=== PATIENT | female | born 1945 | race Caucasian/White ===

== ENCOUNTER 2019-01-10 15:58 | Inpatient (IN) | payer MEDICARE, MEDICAID ==
[~2019-01-10] VITALS: Ht 165.1 cm; Wt 102.5 kg
[~2019-01-10 15:58] MED LIST: DOCU240C26 PO; ERGO500014 PO; FURO-145 PO; LEVO50TA PO; MAGN355O3 PO; MAGN400O6 PO; POTA10CA43 PO; TYL2T PO
[2019-01-10 16:21] LABS: BASOPHILS # (AUTO) 0.1 /CMM (0.0-0.2); EOSINOPHILS % (AUTO) 2.6 % (0.0-6.0); HEMATOCRIT 37 % (33-45); HEMOGLOBIN 11.8 g/dL (11.5-14.8); LYMPHOCYTES # (AUTO) 1.4 /CMM (0.8-4.8); LYMPHOCYTES % (AUTO) 29.1 % (20.0-44.0); MEAN CORPUSCULAR HGB CONC 32 g/dl (31.0-36.0); MEAN CORPUSCULAR VOLUME 77 fL (82-100); MONOCYTES # (AUTO) 0.4 /CMM (0.1-1.30); MONOCYTES % (AUTO) 9.1 % (2.0-12.0); NEUTROPHILS # (AUTO) 2.9 /CMM (1.8-8.9); NEUTROPHILS % (AUTO) 58.2 % (43.0-81.0); PLATELET COUNT (AUTO) 133 /CMM (150-450); RED BLOOD CELL COUNT(AUTO) 4.79 MIL/uL (4.0-5.2); WHITE BLOOD COUNT (AUTO) 4.9 K/uL (4.3-11.0)
[2019-01-10 16:41] LABS: CALCIUM, SERUM 9.5 mg/dL (8.5-10.1); CARBON DIOXIDE 30 mmol/L (21-32); CHLORIDE 104 mmol/L (98-107); CREATININE 0.7 mg/dL (0.6-1.3); GLUCOSE 87 mg/dL (74-106); POTASSIUM 3.6 mmol/L (3.5-5.1); SODIUM SERUM 139 mmol/L (136-145); UREA NITROGEN, BLOOD 16 mg/dL (7-18)
[2019-01-10 16:46] LABS: ACETAMINOPHEN < 10 ug/ml (10-30); ALANINE AMINOTRANSFERASE 18 U/L (12-78); ALBUMIN 3.1 g/dL (3.4-5.0); ALCOHOL, BLOOD < 3 mg/dL (0-0); ALKALINE PHOSPHATASE 80 U/L (46-116); ASPARTATE AMINOTRANSFERASE 22 U/L (15-37); BILIRUBIN,DIRECT 0.2 mg/dL (0.0-0.2); BILIRUBIN,TOTAL 0.4 mg/dL (0.2-1.0); SALICYLATE 0.8 mg/dL (2.8-20.0); TOTAL PROTEIN, SERUM 7.8 g/dL (6.4-8.2)
--- NOTE | 2019-01-10 18:30 | NUR ---
PT PLACED ON 5150 HOLD OF 1330
--- NOTE | 2019-01-10 18:30 | NUR ---
ASSUMED CARE OF PT. PT BIB AMBULANCE FROM SNF FOR AGGRESSIVE BEHAVIOR TOWARDS STAFF. PT IS REFUSING MEDICATION.
--- NOTE | 2019-01-10 18:57 | NUR ---
PT PLACED ON A BEDPAN.
--- NOTE | 2019-01-10 19:00 | NUR ---
PT REMOVED FROM THE BEDPAN AND URINE SAMPLE SENT TO THE LAB. PT WAS CLEANED AND NEW DIAPER APPLIED.
[2019-01-10 19:27] LABS: APPEARANCE,URINE Slightly Cloudy (CLEAR); BILIRUBIN,URINE Negative (NEGATIVE); BLOOD, URINE Negative Ery/uL (NEGATIVE); COLOR,URINE Yellow (YELLOW); KETONES,URINE Negative (NEGATIVE); LEUKOCYTE ESTERASE ,URINE Small (NEGATIVE); NITRITE, URINE Positive (NEGATIVE); PROTEIN,URINE Negative (NEGATIVE); UGLUCOSE Negative (NEGATIVE)
[2019-01-10 19:31] LABS: BACTERIA,URINE 1+ /HPF (None Seen); RBC,URINE NONE SEEN /HPF (0-2); SQUAMOUS EPITHELIAL CELL,UR Few /HPF (None Seen)
--- NOTE | 2019-01-10 19:47 | NUR ---
PT APPEARS TO BE RESTING COMFORTABLY WITH NO S/S OF PAIN OR DISTRESS.
--- NOTE | 2019-01-10 19:48 | NUR ---
CALLING REPORT TO GASTON PIERSON. PT IS GOING TO ROOM 218A
[2019-01-10] MEDS: SULFAMETH/TRIMETH 800/160 MG 1 UDTAB TABLET PO ONE ×2 (20:00→21:38)
--- NOTE | 2019-01-10 20:00 | NUR ---
ADMITTED A 73 Y/O FEMALE FROM [facility] AND EVALUATED AT [facility], ON 5150 GD, BASED ON HOLD, PATIENT REFUSED MEDS, CARE, AGGRESSIVE TOWARDS STAFF, AGITATION. PATIENT ADMITTING DX. OF PSYCHOSIS, MEDICAL DX. OF UTI, HPTN. HYPOTHYROIDISM. UPON FACE TO FACE EVALUATION, PATIENT APPEARED ALERT AND ORIENTED X 2, WITH CONFUSION, UNCOOPERATIVE, HYPERVERBAL, CURSING, EASILY AGITATED, REFUSED BACTRIM, EXPLAINED THE RISK AND BENEFITS BUT PATIENT STILL REFUSED, NO SOB, NO ACUTE DISTRESS, BREATHING EVEN AND UNLABORED, DENIES PAIN AND DISCOMFORT. BELONGINGS CHECK FOR CONTRABAND, PATIENT NEEDS ATTENDED AND MET. NOTIFIED DR. SERG OCONNOR TO RECONCILE MEDICATION. NOTIFIED DR. MEJIA OF THE ADMISSION. PATIENT UNABLE TO SIGN PAPER WORKS, REFUSED PICTURE AND SKIN CHEK AT THIS TIME. ALL NEEDS ATTENDED AND MET, WILL CONTINUE TO MONITOR [id number] FOR SAFETY Addendum: 01/11/19 at 0155 by LUCERO SAWANT II, RN PER DR. PENA, SHE KNOWS THE PATIENT AND SHE WILL COME TO SEE HER TOMMOROW. ORDERS GIVEN NOTED AND CARRIED OUT.
--- NOTE | 2019-01-10 20:12 | NUR ---
ENDORSED BACTRIM PO TO AL LEE .
[2019-01-10] MEDS ORDERED: CHOL20004 PO (20:46)
[2019-01-10] MEDS ORDERED: OLAN20TA3 PO (20:46)
[2019-01-10] MEDS ORDERED: LITH150C PO (20:46)
[2019-01-10] MEDS ORDERED: LEVO25TA7 PO (20:46)
[2019-01-10] MEDS ORDERED: LORAZEPAM 0.5 MG TABLET PO PRN (21:00)
[2019-01-10] MEDS ORDERED: ACETAMINOPHEN 325 MG TABLET PO PRN (21:00)
[2019-01-10] MEDS ORDERED: MAGNESIUM HYDROXIDE 30 ML UDC PO PRN (21:00)
[2019-01-10] MEDS ORDERED: MAG HYDROX/AL HYDROX/SIMETH 30 ML UDC PO PRN (21:00)
--- NOTE | 2019-01-10 21:57 | NUR ---
GPS RN NOTE: ATTEMPTED TO GIVE THE BACTRIM DS, MULTIPLE TIMES, PATIENT REFUSED, REDIRECTED, REINFORCED AND EXPLAINED THE RISK AND BENEFITS BUT PATIENT STILL REFUSED. PATIENT GETS IRRITATED. WILL CONTINUE TO MONITOR [id number] SAFETY
[2019-01-11 00:46] VITALS: BP 142/78
[2019-01-11] MEDS: LEVOTHYROXINE SODIUM 25 MCG TABLET PO SCH (07:30)
[2019-01-11 07:35] LABS: CHOLESTEROL 84 mg/dL (<200); HDL CHOLESTEROL 37 mg/dL (40-60); LDL 40 mg/dL (0-99); TRIGLYCERIDES 72 mg/dL (30-150)
[2019-01-11 07:41] LABS: CREATININE 0.8 mg/dL (0.6-1.3)
[2019-01-11 08:00] VITALS: BP 127/76
[2019-01-11] MEDS: FUROSEMIDE 20 MG TABLET PO SCH (09:00)
[2019-01-11] MEDS: DOCUSATE SODIUM 100 MG CAPSULE PO SCH (09:00)
[2019-01-11] MEDS: POTASSIUM CHLORIDE 10 MEQ TABLET.SA PO SCH (09:00)
[2019-01-11] MEDS: CHOLECALCIFEROL 1,000 UNIT TABLET (VIT D3) PO SCH (09:00)
[2019-01-11] MEDS: Z GUARD REMEDY 4 OZ OINT TP SCH ×2 (09:00→21:06)
--- NOTE | 2019-01-11 10:19 | NUR ---
RN NOTES ATTEMPTED TO GIVE AM MEDICATIONS, MULTIPLE TIMES, PATIENT REFUSED, REDIRECTED, REINFORCED AND EXPLAINED THE RISK AND BENEFITS BUT PATIENT STILL REFUSED. PATIENT GETS IRRITATED. WILL CONTINUE TO MONITOR [id number] FOR SAFETY. MEDICATIONS OPENED AND WASTED.
[2019-01-11] MEDS ORDERED: MINERAL OIL/PETROLATUM,WHITE 120 GM JAR TP PRN (11:00)
--- NOTE | 2019-01-11 11:05 | NUR ---
WOUND CARE CONSULT: PT PRESENTS WITH RT CHEST RASH, BUTTOCK RASH, BILATERAL LOWER LEG REDNESS WITH SCALY SKIN, LONG CURLING TOENAILS, ALL PRESENT ON ADMISSION. RECOMMEND DPM CONSULT. RECOMMENDATIONS MADE FOR SKIN PROTECTION. DISCUSSED WITH NURSING STAFF. WILL SEE PRN. CURRENT WARD SCORE IS 15. MD IN AGREEMENT WITH PLAN OF CARE.
--- NOTE | 2019-01-11 11:08 | NUR ---
RN NOTES REFUSED SKIN PHOTOS
--- NOTE | 2019-01-11 13:38 | NUR ---
SW called the pt's conservator, Amairani ([phone]), and informed her that the pt is currently admitted to [facility], geriatric psych unit. SW stated that the pt came from [facility] and that the plan is that the pt will return. BALJEET asked the conservator if she could provide more information for the SW about the pt because the pt was unable to answer many questions on the assessment. She answered as many as questions as best as she could and then she directed the SW to the pt's case management specialist, Gwen Shane ([phone]).
--- NOTE | 2019-01-11 14:10 | NUR ---
SW called the pt's case loader operator, Gwen Shane ([phone]), who was able to provide the SW with more necessary information for the completion of the pt's psychosocial due to the fact that the pt was unable to ascertain many of the questions due to her confusion and psychosis.
--- NOTE | 2019-01-11 15:49 | NUR ---
RN NOTES DR TAO, SUGARCANE PLANTER, CAME TO SEE THE PATIENT TO ASSESS TOENAIL FOR POSSIBLE TRIMMING. PATIENT REFUSED, PER PATIENT "I DONT WANT ANYBODY TO LOOK AT IT".
[2019-01-11 16:00] VITALS: BP 114/72
[2019-01-11] MEDS: CLOTRIMAZOLE 1% 15 GM TUBE TP SCH (17:00)
[2019-01-11 20:28] VITALS: BP 111/53
--- NOTE | 2019-01-11 20:48 | NUR ---
GPS RN NOTES: PT. REFUSED TO SKIN ASSESSMENT AND PICTURES TAKEN , ENCOURAGED EXPLAINED RISKS AND BENEFITS ,PT. STILL REFUSED. PT. BEHAVIOR VERY UNCOOPERTIVE ,VERBALLY ABUSIVE , AGITATED.
--- NOTE | 2019-01-11 20:52 | NUR ---
GPS RN NOTES: CALLED PHARMACY REGARDING ABOUT REMEDY Z-GUARD,
[2019-01-11] MEDS: OLANZAPINE 10 MG TABLET PO SCH (22:00)
--- NOTE | 2019-01-11 22:14 | NUR ---
GPS RN NOTES: PT.REFUSED NIGHT MEDS, OLANZAPINE 20MG , ENCOURAGED EXPLAINED RISKS AND BENEFITS ,PT. STILL REFUSED. PT. BEHAVIOR VERY UNCOOPERTIVE ,VERBALLY ABUSIVE , AGITATED. PER PT. I DONT WANT TAKE ANY MEDICATION
[2019-01-12] MEDS: LEVOTHYROXINE SODIUM 25 MCG TABLET PO SCH (07:30)
[2019-01-12 08:00] VITALS: BP 141/69
[2019-01-12] MEDS: FLUPHENAZINE HCL 10 MG TABLET PO SCH ×3 (09:00→17:00)
[2019-01-12] MEDS: LITHIUM CARBONATE (300 MG CAP) 300 MG CAPSULE PO SCH (09:00)
[2019-01-12] MEDS: DOCUSATE SODIUM 100 MG CAPSULE PO SCH (09:00)
[2019-01-12] MEDS: FUROSEMIDE 20 MG TABLET PO SCH (09:00)
[2019-01-12] MEDS: CHOLECALCIFEROL 1,000 UNIT TABLET (VIT D3) PO SCH (09:00)
[2019-01-12] MEDS: Z GUARD REMEDY 4 OZ OINT TP SCH ×2 (09:29→21:00)
[2019-01-12] MEDS: CLOTRIMAZOLE 1% 15 GM TUBE TP SCH ×2 (09:29→17:36)
--- NOTE | 2019-01-12 11:08 | NUR ---
RN-CO: CALLED [facility] TO FAX THE [facility] PAPERS TO THE UNIT. STATED " I AM GOING TO FAX IT." AWAITING.
--- NOTE | 2019-01-12 12:27 | NUR ---
Initial Discharge Plan: Pt currently resides at [facility] [place] located at [address] [place] [phone]; ([phone]). Per pt, she was unable to ascertain whether or not she would like to return to the SNF due to her psychosis. SW will work with the pt and the MD regarding appropriate discharge planning. SW will form a safe and proper discharge.
[2019-01-12 16:00] VITALS: BP 138/72
--- NOTE | 2019-01-12 17:26 | NUR ---
SPOKE [facility]AS[facility] PUBLIC GUARDIAN OFFICE AND RECEIVED AN AUTHORIZATION TO DETAIN AND TREAT CONSERVATEE.
[2019-01-12] MEDS ORDERED: OLANZAPINE 10 MG VIAL IM PRN (17:30)
--- NOTE | 2019-01-12 17:40 | NUR ---
CALLED DR. PENA TO NOTIFY THAT WE DON'T HAVE PROLIXIN IM IN OUR PHARMACY AND LEFT A MESSAGE AND AWAITING FOR THE CALL BACK.
[2019-01-12 20:00] VITALS: BP 130/64
[2019-01-12] MEDS: OLANZAPINE 10 MG TABLET PO SCH (22:18)
[2019-01-13] MEDS: LEVOTHYROXINE SODIUM 25 MCG TABLET PO SCH (07:30)
[2019-01-13 08:00] VITALS: BP 140/84
[2019-01-13] MEDS: FLUPHENAZINE HCL 10 MG TABLET PO SCH ×3 (08:36→17:00)
[2019-01-13] MEDS: FUROSEMIDE 20 MG TABLET PO SCH (08:36)
[2019-01-13] MEDS: LITHIUM CARBONATE (300 MG CAP) 300 MG CAPSULE PO SCH (08:36)
[2019-01-13] MEDS: POTASSIUM CHLORIDE 10 MEQ TABLET.SA PO SCH (08:36)
[2019-01-13] MEDS: DOCUSATE SODIUM 100 MG CAPSULE PO SCH (08:36)
[2019-01-13] MEDS: CHOLECALCIFEROL 1,000 UNIT TABLET (VIT D3) PO SCH (08:36)
--- NOTE | 2019-01-13 08:37 | NUR ---
Pt's conservator, Amairani ([phone]), called the SW and asked if there were any updates regarding this pt's case. The SW stated that right now, the pt's psychiatrist, Dr. Izaguirre, is working with the pt and making medication adjustments to stabilize her. Once she states that the pt is stable enough for discharge, the SW stated that she call the conservator and inform her.
[2019-01-13] MEDS: Z GUARD REMEDY 4 OZ OINT TP SCH ×2 (09:27→21:37)
[2019-01-13] MEDS: CLOTRIMAZOLE 1% 15 GM TUBE TP SCH ×2 (09:27→17:38)
--- NOTE | 2019-01-13 12:56 | NUR ---
GPS RN NOTE: PT REFUSED AM MEDICATIONS EASILY AGITATED WHEN EXPLAIN RISK AND BENEFITSX3 ,PT CONTINUE REFUSING ,
[2019-01-13 16:00] VITALS: BP 126/69
[2019-01-13] MEDS: OLANZAPINE 5 MG TABLET PO SCH (17:37)
--- NOTE | 2019-01-13 19:55 | NUR ---
RN OPENING NOTES RECEIVED REPORT FROM DAYSHIFT RN. FOUND Pt ASLEEP, RESTING IN BED. NO S/S OF ACUTE DISTRESS OR SOB NOTED. RESPIRATIONS EVEN AND UNLABORED. SAFETY MEASURES IN PLACE. BED LOW, LOCKED, HOB ELEVATED, & SIDE RAILS UP. WILL CONTINUE TO MONITOR Pt's CONDITION AND SAFETY THROUGHOUT THE NIGHT.
[2019-01-13 20:00] VITALS: BP 117/69
[2019-01-13 21:00] VITALS: BP 117/69
[2019-01-13] MEDS: OLANZAPINE 10 MG TABLET PO SCH (21:27)
--- NOTE | 2019-01-13 22:00 | NUR ---
RN NOTES Pt TOOK ZYPREXA 20MG PO. Pt WAS AGITATED AND STARTED YELLING WELL TOLD SHE NEEDED TO TAKE HER ZYPREXA; AT FIRST Pt DID NOT WANT TO COOPERATE AND REFUSED TO TAKE THE PO MED. BUT WHEN EXPLAINED THAT IF SHE REFUSED THE PO METHOD, THEN THE ONLY ALTERNATIVE WOULD BE TO GET AN IM INJECTION SHOT WITH A NEEDLE. WHEN GIVEN HER OPTIONS, SHE AGREE TO TAKE THE PO MED INSTEAD.
[2019-01-14] MEDS: LEVOTHYROXINE SODIUM 25 MCG TABLET PO SCH ×2 (07:30→09:57)
--- NOTE | 2019-01-14 07:35 | NUR ---
RN JENNIFER NOTES NO SIGNIFICANT CHANGES IN Pt's CONDITION. Pt REMAINS STABLE PER BASELINE. NO S/S OF ACUTE DISTRESS OR SOB NOTED DURING THE NIGHT. ALL NEEDS MET AND ATTENDED. SAFETY MEASURES IN PLACE. ENDORSED TO AL FRASER FOR Pt's DINO.
[2019-01-14 08:00] VITALS: BP 100/59
[2019-01-14] MEDS: FUROSEMIDE 20 MG TABLET PO SCH ×2 (09:00→09:58)
[2019-01-14] MEDS: CHOLECALCIFEROL 1,000 UNIT TABLET (VIT D3) PO SCH ×2 (09:00→09:58)
[2019-01-14] MEDS: DOCUSATE SODIUM 100 MG CAPSULE PO SCH ×2 (09:00→09:57)
[2019-01-14] MEDS: LITHIUM CARBONATE (300 MG CAP) 300 MG CAPSULE PO SCH ×2 (09:00→09:57)
[2019-01-14] MEDS: FLUPHENAZINE HCL 10 MG TABLET PO SCH ×4 (09:00→17:00)
[2019-01-14] MEDS: OLANZAPINE 5 MG TABLET PO SCH ×2 (09:58→16:51)
[2019-01-14] MEDS: CLOTRIMAZOLE 1% 15 GM TUBE TP SCH ×2 (10:08→16:51)
[2019-01-14] MEDS: Z GUARD REMEDY 4 OZ OINT TP SCH ×2 (10:08→21:02)
[2019-01-14] MEDS: OLANZAPINE 10 MG TABLET PO SCH (10:11)
--- NOTE | 2019-01-14 10:43 | NUR ---
refused all am meds except zyprexa.
--- NOTE | 2019-01-14 15:32 | NUR ---
no change in status.
[2019-01-14 16:00] VITALS: BP 126/82
--- NOTE | 2019-01-14 19:30 | NUR ---
GPS RN NOTE, RECEIVED PATIENT AWAKE AND IN BED NO S/S OR COMPLAINTS OF PAIN AT THIS TIME. PATIENT IS DISPLAYING NO S/S OF APPARENT DISTRESS AT THIS TIME. PATIENT BREATHING IS UNLABORED WITH EQUAL RISE AND FALL OF THE CHEST. PATIENT IS ALERT AND ORIENTED X 1-2 ON ROOM AIR WITH A SPO2 0F 95%. PATIENT IS MED SELECTIVE, DISORGANIZED, DELUSIONAL, COOPERATIVE, CONFUSED AT TIME, AND NEEDS REORIENTATION. PATIENT DENIES SUICIDE AND HOMICIDAL IDEATIONS AT THIS TIME. PATIENT ASSISTED WITH TURNING AND REPOSITIONING Q2HR AND PRN FOR COMFORT AND CIRCULATION. PATIENT HAS NO NEEDS AT THIS TIME. PATIENT EDUCATED ON THE USE OF THE CALL SHAH. PATIENT BED SIDE RAILS ARE UP X 2 FOR SAFETY, BED IS LOCKED AND LOW. WILL CONTINUE TO MONITOR AND MAINTAIN SAFETY Q15 MIN WITH THE HELP OF STAFF.
[2019-01-14 20:00] VITALS: BP 110/64
[2019-01-15] MEDS: LEVOTHYROXINE SODIUM 25 MCG TABLET PO SCH (07:30)
[2019-01-15 08:00] VITALS: BP 131/67
[2019-01-15] MEDS: DOCUSATE SODIUM 100 MG CAPSULE PO SCH (09:00)
[2019-01-15] MEDS: Z GUARD REMEDY 4 OZ OINT TP SCH ×2 (09:00→21:11)
[2019-01-15] MEDS: CHOLECALCIFEROL 1,000 UNIT TABLET (VIT D3) PO SCH (09:00)
[2019-01-15] MEDS: POTASSIUM CHLORIDE 10 MEQ TABLET.SA PO SCH (09:00)
[2019-01-15] MEDS: FLUPHENAZINE HCL 10 MG TABLET PO SCH ×3 (09:00→17:00)
[2019-01-15] MEDS: OLANZAPINE 5 MG TABLET PO SCH ×2 (09:00→17:00)
[2019-01-15] MEDS: LITHIUM CARBONATE (300 MG CAP) 300 MG CAPSULE PO SCH (09:00)
[2019-01-15] MEDS: FUROSEMIDE 20 MG TABLET PO SCH (09:00)
[2019-01-15] MEDS: CLOTRIMAZOLE 1% 15 GM TUBE TP SCH ×2 (09:00→18:18)
[2019-01-15] MEDS: clonazePAM 0.5 MG TABLET PO PRN (10:48)
[2019-01-15 16:00] VITALS: BP 116/53
--- NOTE | 2019-01-15 19:30 | NUR ---
GPS RN NOTE, RECEIVED PATIENT AWAKE AND IN BED NO S/S OR COMPLAINTS OF PAIN AT THIS TIME. PATIENT IS DISPLAYING NO S/S OF APPARENT DISTRESS AT THIS TIME. PATIENT BREATHING IS UNLABORED WITH EQUAL RISE AND FALL OF THE CHEST. PATIENT IS ALERT AND ORIENTED X 1-2 ON ROOM AIR WITH A SPO2 OF 98%. PATIENT IS MED SELECTIVE, DISORGANIZED, DELUSIONAL, COOPERATIVE, CONFUSED AT TIME, AND NEEDS REORIENTATION. PATIENT DENIES SUICIDE AND HOMICIDAL IDEATIONS AT THIS TIME. PATIENT ASSISTED WITH TURNING AND REPOSITIONING Q2HR AND PRN FOR COMFORT AND CIRCULATION. PATIENT HAS NO NEEDS AT THIS TIME. PATIENT EDUCATED ON THE USE OF THE CALL SHAH. PATIENT BED SIDE RAILS ARE UP X 2 FOR SAFETY, BED IS LOCKED AND LOW. WILL CONTINUE TO MONITOR AND MAINTAIN SAFETY Q15 MIN WITH THE HELP OF STAFF.
--- NOTE | 2019-01-15 20:00 | NUR ---
GPS RN NOTE, PATIENT REFUSED TO HAVE SKIN EXAM AND PICTURES TAKEN TODAY. OFFERED TO DO SKIN EXAM AND TAKE PICTURES THREE TIMES AND STILL PATIENT REFUSED STATING, " I DON'T WANT PICTURES TAKEN OF ME ". EDUCATED THIS PATIENT ON HOSPITAL POLICY OF DOING SKIN EXAM. WILL CONTINUE TO MONITOR THIS PATIENT.
[2019-01-15 20:29] VITALS: BP 132/69
[2019-01-15] MEDS: OLANZAPINE 10 MG TABLET PO SCH (21:49)
[2019-01-16] MEDS: LEVOTHYROXINE SODIUM 25 MCG TABLET PO SCH (07:30)
[2019-01-16 08:00] VITALS: BP 101/73
[2019-01-16] MEDS ORDERED: FLUPHENAZINE DECANOATE 25 MG/ML IJ ONE (09:00)
[2019-01-16] MEDS: FLUPHENAZINE HCL 10 MG TABLET PO SCH ×3 (09:19→17:00)
[2019-01-16] MEDS: LITHIUM CARBONATE (300 MG CAP) 300 MG CAPSULE PO SCH (09:19)
[2019-01-16] MEDS: CHOLECALCIFEROL 1,000 UNIT TABLET (VIT D3) PO SCH (09:19)
[2019-01-16] MEDS: DOCUSATE SODIUM 100 MG CAPSULE PO SCH (09:19)
[2019-01-16] MEDS: OLANZAPINE 5 MG TABLET PO SCH ×2 (09:19→17:00)
[2019-01-16] MEDS: CLOTRIMAZOLE 1% 15 GM TUBE TP SCH ×2 (09:20→17:00)
[2019-01-16] MEDS: FUROSEMIDE 20 MG TABLET PO SCH (09:20)
[2019-01-16] MEDS: Z GUARD REMEDY 4 OZ OINT TP SCH ×2 (09:21→21:26)
[2019-01-16 16:00] VITALS: BP 107/68
[2019-01-16 20:13] VITALS: BP 126/53
[2019-01-16] MEDS: OLANZAPINE 10 MG TABLET PO SCH (21:25)
[2019-01-16 21:40] VITALS: BP 120/65
[2019-01-17 08:00] VITALS: BP 137/98
[2019-01-17] MEDS: POTASSIUM CHLORIDE 10 MEQ TABLET.SA PO SCH ×2 (08:50→09:00)
[2019-01-17] MEDS: LEVOTHYROXINE SODIUM 25 MCG TABLET PO SCH (08:50)
[2019-01-17] MEDS: CHOLECALCIFEROL 1,000 UNIT TABLET (VIT D3) PO SCH ×2 (08:50→09:00)
[2019-01-17] MEDS: LITHIUM CARBONATE (300 MG CAP) 300 MG CAPSULE PO SCH (08:50)
[2019-01-17] MEDS: FLUPHENAZINE HCL 10 MG TABLET PO SCH ×2 (08:50→21:59)
[2019-01-17] MEDS: DOCUSATE SODIUM 100 MG CAPSULE PO SCH ×2 (08:51→09:00)
[2019-01-17] MEDS: FUROSEMIDE 20 MG TABLET PO SCH ×2 (08:51→09:00)
[2019-01-17] MEDS: OLANZAPINE 5 MG TABLET PO SCH ×2 (08:51→17:11)
[2019-01-17] MEDS: CLOTRIMAZOLE 1% 15 GM TUBE TP SCH ×2 (09:00→17:13)
[2019-01-17] MEDS: Z GUARD REMEDY 4 OZ OINT TP SCH ×2 (09:00→21:59)
[2019-01-17 16:00] VITALS: BP 100/55
[2019-01-17 21:56] VITALS: BP 115/60
[2019-01-17] MEDS: OLANZAPINE 10 MG TABLET PO SCH (21:59)
[2019-01-18 07:05] LABS: BASOPHILS % (AUTO) 0.7 % (0.0-2.0); EOSINOPHILS % (AUTO) 5.2 % (0.0-6.0); HEMATOCRIT 38 % (33-45); HEMOGLOBIN 11.9 g/dL (11.5-14.8); LYMPHOCYTES # (AUTO) 1.9 /CMM (0.8-4.8); LYMPHOCYTES % (AUTO) 30.2 % (20.0-44.0); MEAN CORPUSCULAR HGB CONC 32 g/dl (31.0-36.0); MEAN CORPUSCULAR VOLUME 78 fL (82-100); MONOCYTES # (AUTO) 0.5 /CMM (0.1-1.30); MONOCYTES % (AUTO) 8.2 % (2.0-12.0); NEUTROPHILS # (AUTO) 3.4 /CMM (1.8-8.9); NEUTROPHILS % (AUTO) 55.7 % (43.0-81.0); PLATELET COUNT (AUTO) 113 /CMM (150-450); RED BLOOD CELL COUNT(AUTO) 4.86 MIL/uL (4.0-5.2); WHITE BLOOD COUNT (AUTO) 6.1 K/uL (4.3-11.0)
[2019-01-18] MEDS: LEVOTHYROXINE SODIUM 25 MCG TABLET PO SCH (07:30)
[2019-01-18 07:44] LABS: CALCIUM, SERUM 9.4 mg/dL (8.5-10.1); CARBON DIOXIDE 28 mmol/L (21-32); CHLORIDE 106 mmol/L (98-107); CREATININE 0.8 mg/dL (0.6-1.3); GLUCOSE 94 mg/dL (74-106); PHOSPHORUS 4.1 mg/dL (2.5-4.9); POTASSIUM 4.2 mmol/L (3.5-5.1); SODIUM SERUM 141 mmol/L (136-145); UREA NITROGEN, BLOOD 7 mg/dL (7-18)
[2019-01-18 08:00] VITALS: BP 147/76
[2019-01-18] MEDS: DOCUSATE SODIUM 100 MG CAPSULE PO SCH (08:31)
[2019-01-18] MEDS: FUROSEMIDE 20 MG TABLET PO SCH (08:31)
[2019-01-18] MEDS: OLANZAPINE 5 MG TABLET PO SCH ×2 (08:32→17:05)
[2019-01-18] MEDS: CHOLECALCIFEROL 1,000 UNIT TABLET (VIT D3) PO SCH (08:32)
[2019-01-18] MEDS: LITHIUM CARBONATE (300 MG CAP) 300 MG CAPSULE PO SCH (08:32)
[2019-01-18] MEDS: Z GUARD REMEDY 4 OZ OINT TP SCH ×2 (08:33→21:20)
[2019-01-18] MEDS: CLOTRIMAZOLE 1% 15 GM TUBE TP SCH ×2 (08:33→17:00)
[2019-01-18 16:00] VITALS: BP 122/61
--- NOTE | 2019-01-18 19:10 | NUR ---
RECIEVED PATIENT AWAKE ALERT. ACKNOWLEDGED ME WHEN I INTRODUCED MY SELF. SHE IS IN BED, STARING AT THE WALL AHEAD OF HER. SHE SMILES WHEN SPOKEN TO AND HAS [facility] CONTACT. PATIENT'S BREATHING UNLABORED.
[2019-01-18 20:24] VITALS: BP 121/78
[2019-01-18] MEDS: OLANZAPINE 10 MG TABLET PO SCH (21:20)
[2019-01-18] MEDS: FLUPHENAZINE HCL 10 MG TABLET PO SCH (21:20)
--- NOTE | 2019-01-19 05:05 | NUR ---
ENDING NOTES: AT THE BEGINNING OF THE SHIFT SHE WAS PLEASENT AND SMILING . ACKNOWLEDGED ME WHEN I INTRODUCED RHONDA. AT 22:00 I NOTICED SHE SPOKE AGGRESSIVELY...MOCKING ME I SPOKE. SHE REFUSED THE MEDICATION ZYPREXIA PO , WHEN I INSTRUCTED HER THE NEED TO TAKE I WOULD HAVE TO HER A SHOT IF NOT TAKING PO, SHE TOOK THE PILL WITH APPLEJUICE.
[2019-01-19 08:00] VITALS: BP 129/81
[2019-01-19] MEDS: LITHIUM CARBONATE (300 MG CAP) 300 MG CAPSULE PO SCH (08:31)
[2019-01-19] MEDS: LEVOTHYROXINE SODIUM 25 MCG TABLET PO SCH (08:31)
[2019-01-19] MEDS: OLANZAPINE 5 MG TABLET PO SCH ×2 (08:31→16:25)
[2019-01-19] MEDS: DOCUSATE SODIUM 100 MG CAPSULE PO SCH (08:31)
[2019-01-19] MEDS: FUROSEMIDE 20 MG TABLET PO SCH (08:32)
[2019-01-19] MEDS: CHOLECALCIFEROL 1,000 UNIT TABLET (VIT D3) PO SCH (08:32)
[2019-01-19] MEDS: POTASSIUM CHLORIDE 10 MEQ TABLET.SA PO SCH (08:34)
[2019-01-19] MEDS: Z GUARD REMEDY 4 OZ OINT TP SCH ×2 (09:01→22:19)
[2019-01-19] MEDS: CLOTRIMAZOLE 1% 15 GM TUBE TP SCH ×2 (09:01→16:25)
[2019-01-19 16:00] VITALS: BP 105/67
[2019-01-19 20:00] VITALS: BP 117/70
[2019-01-19] MEDS: FLUPHENAZINE HCL 10 MG TABLET PO SCH (22:10)
[2019-01-19] MEDS: OLANZAPINE 10 MG TABLET PO SCH (22:10)
[2019-01-20 08:00] VITALS: BP 135/64
[2019-01-20] MEDS: LITHIUM CARBONATE (300 MG CAP) 300 MG CAPSULE PO SCH (08:49)
[2019-01-20] MEDS: FUROSEMIDE 20 MG TABLET PO SCH (08:49)
[2019-01-20] MEDS: CHOLECALCIFEROL 1,000 UNIT TABLET (VIT D3) PO SCH (08:49)
[2019-01-20] MEDS: LEVOTHYROXINE SODIUM 25 MCG TABLET PO SCH (08:49)
[2019-01-20] MEDS: DOCUSATE SODIUM 100 MG CAPSULE PO SCH (08:49)
[2019-01-20] MEDS: OLANZAPINE 5 MG TABLET PO SCH ×2 (08:50→17:09)
[2019-01-20] MEDS: Z GUARD REMEDY 4 OZ OINT TP SCH ×2 (09:16→20:45)
[2019-01-20] MEDS: CLOTRIMAZOLE 1% 15 GM TUBE TP SCH ×2 (09:17→17:15)
[2019-01-20 16:00] VITALS: BP 100/59
--- NOTE | 2019-01-20 18:01 | NUR ---
DR. PENA GAVE AN ORDER FOR DENIAL RIGHTS TO GIVE SHOWER.
[2019-01-20 20:00] VITALS: BP 123/69
[2019-01-20] MEDS: FLUPHENAZINE HCL 10 MG TABLET PO SCH (21:09)
[2019-01-20] MEDS: OLANZAPINE 10 MG TABLET PO SCH (21:09)
[2019-01-21 08:00] VITALS: BP 120/68
[2019-01-21] MEDS: FUROSEMIDE 20 MG TABLET PO SCH (08:27)
[2019-01-21] MEDS: POTASSIUM CHLORIDE 10 MEQ TABLET.SA PO SCH (08:27)
[2019-01-21] MEDS: CHOLECALCIFEROL 1,000 UNIT TABLET (VIT D3) PO SCH (08:27)
[2019-01-21] MEDS: LEVOTHYROXINE SODIUM 25 MCG TABLET PO SCH (08:27)
[2019-01-21] MEDS: LITHIUM CARBONATE (300 MG CAP) 300 MG CAPSULE PO SCH (08:27)
[2019-01-21] MEDS: DOCUSATE SODIUM 100 MG CAPSULE PO SCH (08:27)
[2019-01-21] MEDS: OLANZAPINE 5 MG TABLET PO SCH ×2 (08:27→16:49)
[2019-01-21] MEDS: CLOTRIMAZOLE 1% 15 GM TUBE TP SCH ×2 (08:32→16:51)
[2019-01-21] MEDS: Z GUARD REMEDY 4 OZ OINT TP SCH ×2 (08:32→20:24)
[2019-01-21 16:00] VITALS: BP 113/72
[2019-01-21 20:00] VITALS: BP 105/64
[2019-01-21] MEDS: OLANZAPINE 10 MG TABLET PO SCH (21:55)
[2019-01-21] MEDS: FLUPHENAZINE HCL 10 MG TABLET PO SCH (21:55)
[2019-01-22] MEDS: LEVOTHYROXINE SODIUM 25 MCG TABLET PO SCH (07:30)
[2019-01-22 08:00] VITALS: BP 121/72
[2019-01-22] MEDS: OLANZAPINE 5 MG TABLET PO SCH ×2 (09:04→16:35)
[2019-01-22] MEDS: FUROSEMIDE 20 MG TABLET PO SCH (09:04)
[2019-01-22] MEDS: CHOLECALCIFEROL 1,000 UNIT TABLET (VIT D3) PO SCH (09:04)
[2019-01-22] MEDS: DOCUSATE SODIUM 100 MG CAPSULE PO SCH (09:06)
[2019-01-22] MEDS: LITHIUM CARBONATE (300 MG CAP) 300 MG CAPSULE PO SCH (09:06)
[2019-01-22] MEDS: CLOTRIMAZOLE 1% 15 GM TUBE TP SCH ×2 (09:06→16:35)
[2019-01-22] MEDS: Z GUARD REMEDY 4 OZ OINT TP SCH ×2 (09:07→21:00)
[2019-01-22 16:00] VITALS: BP 123/78
[2019-01-22 20:00] VITALS: BP 106/68
[2019-01-22] MEDS: OLANZAPINE 10 MG TABLET PO SCH (21:24)
--- NOTE | 2019-01-23 06:32 | NUR ---
PATIENT IN BED ASLEEP; EASILY AROUSABLE. RESPIRATIONS EVEN. NO SIGNS OF PAIN NOTED. PATIENT REFUSED SKIN CHECK AND PHOTOS. PATIENT REFUSED DUE MEDS. SAFETY PRECAUTIONS AND COMFORT MEASURES IN PLACE. WILL GIVE REPORT TO DAY SHIFT FOR CONTINUITY OF CARE.
[2019-01-23] MEDS: LEVOTHYROXINE SODIUM 25 MCG TABLET PO SCH (07:30)
[2019-01-23 08:00] VITALS: BP 114/52
[2019-01-23] MEDS: CLOTRIMAZOLE 1% 15 GM TUBE TP SCH ×2 (08:35→16:29)
[2019-01-23] MEDS: Z GUARD REMEDY 4 OZ OINT TP SCH ×2 (08:36→21:14)
[2019-01-23] MEDS: POTASSIUM CHLORIDE 10 MEQ TABLET.SA PO SCH (08:38)
[2019-01-23] MEDS: DOCUSATE SODIUM 100 MG CAPSULE PO SCH (08:38)
[2019-01-23] MEDS: FUROSEMIDE 20 MG TABLET PO SCH (08:38)
[2019-01-23] MEDS: LITHIUM CARBONATE (300 MG CAP) 300 MG CAPSULE PO SCH (08:39)
[2019-01-23] MEDS: CHOLECALCIFEROL 1,000 UNIT TABLET (VIT D3) PO SCH (08:39)
[2019-01-23] MEDS: OLANZAPINE 5 MG TABLET PO SCH ×2 (08:39→16:29)
--- NOTE | 2019-01-23 08:40 | NUR ---
GPS NOTES Patient refused medication. Explained risks vs benefits x3 but continues to refuse. Will continue to monitor patient
--- NOTE | 2019-01-23 15:57 | NUR ---
GPS RN NOTES MD in unit. Made aware of med refusal. Awaiting for new orders
[2019-01-23 16:00] VITALS: BP 121/51
--- NOTE | 2019-01-23 16:06 | NUR ---
SW spoke to the pt in her room regarding her upcoming discharge to [facility] [place]. SW informed her that she would be discharging by the end of this week and the pt stated that she would like to return because she misses that environment. SW discussed the medication changes that were made since she has been admitted and informed her that she appears to be much more stable now.
[2019-01-23 20:19] VITALS: BP 125/69
[2019-01-23] MEDS: OLANZAPINE 10 MG TABLET PO SCH (21:13)
[2019-01-24] MEDS ORDERED: ACETAMINOPHEN 325 MG TABLET PO PRN (00:30)
[2019-01-24] MEDS ORDERED: MAGNESIUM HYDROXIDE 30 ML UDC PO PRN (00:30)
[2019-01-24 08:00] VITALS: BP 116/77
[2019-01-24] MEDS: LITHIUM CARBONATE (300 MG CAP) 300 MG CAPSULE PO SCH (08:13)
[2019-01-24] MEDS: clonazePAM 0.5 MG TABLET PO PRN (08:13)
[2019-01-24] MEDS: OLANZAPINE 5 MG TABLET PO SCH ×2 (08:13→16:35)
[2019-01-24] MEDS: LEVOTHYROXINE SODIUM 25 MCG TABLET PO SCH (08:13)
[2019-01-24] MEDS: CHOLECALCIFEROL 1,000 UNIT TABLET (VIT D3) PO SCH (08:14)
[2019-01-24] MEDS: POTASSIUM CHLORIDE 10 MEQ TABLET.SA PO SCH (08:26)
[2019-01-24] MEDS: FUROSEMIDE 20 MG TABLET PO SCH (08:26)
--- NOTE | 2019-01-24 08:29 | NUR ---
TOOK DSS 100 MG PO FROM [facility] AND ACCIDENTALLY DROPPED THE CAPSULE ON THE FLOOR.TOOK ANOTHER 1 CAPSULE FROM [facility].
[2019-01-24] MEDS: CLOTRIMAZOLE 1% 15 GM TUBE TP SCH ×2 (08:50→16:41)
[2019-01-24] MEDS: Z GUARD REMEDY 4 OZ OINT TP SCH ×2 (08:51→21:11)
[2019-01-24] MEDS ORDERED: DOCUSATE SODIUM 100 MG CAPSULE PO SCH (09:00)
[2019-01-24] MEDS ORDERED: CHOLECALCIFEROL 1,000 UNIT TABLET (VIT D3) PO SCH (09:00)
--- NOTE | 2019-01-24 09:00 | NUR ---
GPS RN AM NOTES PATIENT IS ALERT AND ORIENTED X 2. PATIENT IS COOPERATIVE BUT HAS DISORGANIZED SPEECH. PATIENT VITALS ARE WNL. PATIENT IS WITHDRAWN AND ISOLATIVE. PATIENTS MORNING MEDICATIONS WERE GIVEN. SAFETY PRECAUTIONS AND COMFORT MEASURES ARE IN PLACE. WILL CONTINUE TO MONITOR PATIENT.
--- NOTE | 2019-01-24 09:30 | NUR ---
DURING AM CARE,PT IS NOTED TO HAVE DISTENDED SOFT ABDOMEN.PT DENIES ANY DISCOMFORT.PT PASSES GAS WHEN BEING TURNED AND VOIDED XL YELLOW URINE.GOOD PERICARE RENDERED. WILL INFORM DR KNIGHT.
--- NOTE | 2019-01-24 15:15 | NUR ---
PT HAS DISTENDED SOFT ABDOMEN EVEN IF THE PT VOIDS EXTRA LARGE AMOUNTS OF YELLOW URINE.CHECKED FOR IMPACTION-CAME OUT NEGATIVE.BLADDER SCAN DONE AND WAS RETAINING [address] KNGIHT AND AWAITING TO RETURN CALL.PT DENIES ANY DISCOMFORT OR DISTRESS.WILL CONTINUE TO [id number].
[2019-01-24 16:00] VITALS: BP 117/75
--- NOTE | 2019-01-24 16:00 | NUR ---
DR KNIGHT HASN'T RETURN CALL.PAGED SECOND TIME AND AWAITING TO RETURN CALL. PT CONTINUES TO DENY ANY DISTRESS OR DISCOMFORT.
[2019-01-24] MEDS: DOCUSATE SODIUM 100 MG CAPSULE PO SCH (16:35)
--- NOTE | 2019-01-24 16:52 | NUR ---
DR KNIGHT RETURNED CALL WITH ORDERS FOR FLOMAX 0.4 MG PO DAILY AND DO IN/OUT STRAIGHT CATHETER IF BLADDERSCAN RESULT IS >300 ML.
--- NOTE | 2019-01-24 18:00 | NUR ---
DIAPER CHECKED AND MADE XL YELLOW URINE OUTPUT.IN AND OUT STRAIGHT CATH DONE AND DRAINED 400 ML YELLOW URINE OUTPUT.GOOD PERICARE DONE.PT'S ABDOMEN IS STILL SOFT AND DISTENDED BUT DENIES ANY DISCOMFORT OR DISTRESS.ENCOURAGED TO AMBULATE OR SIT IN THE CHAIR BUT PT REFUSED. WILL CONTINUE TO MONITOR.
--- NOTE | 2019-01-24 18:28 | NUR ---
PATIENT IS ALERT AND ORIENTED X 2. PATIENT IS COOPERATIVE BUT AT THAT TIMES GETS AGITATED. PATIENT HAS DISORGANIZED SPEECH. PATIENT VITALS ARE WNL. PATIENT IS WITHDRAWN AND HAS NOT PARTICIPATED IN DAILY ACTIVITIES. PATIENTS TOOK HER MEDICATION WITH NOT PROBLEM. SAFETY PRECAUTIONS AND COMFORT MEASURES ARE IN PLACE. BED IS LOCKED AND AT LOWEST POSITION. WILL CONTINUE TO MONITOR PATIENT AND REPORT TO CABINET ASSEMBLER ABOUT CONTINUOUS OF CARE. .
[2019-01-24 20:36] VITALS: BP 122/74
[2019-01-24] MEDS: TAMSULOSIN 0.4 MG CAP.SR.24H PO SCH (21:36)
[2019-01-24] MEDS: OLANZAPINE 10 MG TABLET PO SCH (21:36)
--- NOTE | 2019-01-24 23:21 | NUR ---
GPS RN NOTES DIAPER CHECKED AND SOME FOUL SMELL URINE OUTPUT NOTED, BLADDER SCAN DONE AND WAS RETAINING 450 ML URINE , PER MD ORDERS IN AND OUT STRAIGHT CATH DONE AND DRAINED 250 ML YELLOW URINE OUTPUT. CHARGE NURSE NOTIFIED AND URINE CULTURE COLLECT AND SEND TO LAB, PERICARE DONE. PT'S ABDOMEN IS STILL SOFT AND DISTENDED BUT DENIES ANY PAIN /DISCOMFORT AT THIS TIME , WILL CONTINUE TO MONITOR.
--- NOTE | 2019-01-25 02:00 | NUR ---
GPS RN NOTES DIAPER CHECKED AND MADE LARGE AMOUNT YELLOW URINE OUTPUT NOTED, PT'S ABDOMEN IS STILL SOFT, BUT DENIES ANY PAIN /DISCOMFORT AT THIS TIME , WILL CONTINUE TO MONITOR.
--- NOTE | 2019-01-25 05:30 | NUR ---
GPS RN NOTES DIAPER CHECKED AND MADE APPROXIMATELY MEDIUM AMOUNT YELLOW URINE OUTPUT NOTED, BLADDER SCAN DONE AND 100 ML URINE NOTED , PT. DENIES ANY PAIN /DISCOMFORT AT THIS TIME , WILL CONTINUE TO MONITOR.
[2019-01-25 08:00] VITALS: BP 126/66
[2019-01-25] MEDS: LEVOTHYROXINE SODIUM 25 MCG TABLET PO SCH (08:51)
[2019-01-25] MEDS: LITHIUM CARBONATE (300 MG CAP) 300 MG CAPSULE PO SCH (08:51)
[2019-01-25] MEDS: DOCUSATE SODIUM 100 MG CAPSULE PO SCH ×2 (08:51→17:45)
[2019-01-25] MEDS: CHOLECALCIFEROL 1,000 UNIT TABLET (VIT D3) PO SCH (08:52)
[2019-01-25] MEDS: OLANZAPINE 5 MG TABLET PO SCH ×2 (08:52→17:45)
[2019-01-25] MEDS: FUROSEMIDE 20 MG TABLET PO SCH (08:52)
[2019-01-25] MEDS: POTASSIUM CHLORIDE 10 MEQ TABLET.SA PO SCH (08:55)
[2019-01-25] MEDS: CLOTRIMAZOLE 1% 15 GM TUBE TP SCH ×2 (08:57→17:49)
[2019-01-25] MEDS: Z GUARD REMEDY 4 OZ OINT TP SCH ×2 (09:44→21:34)
--- NOTE | 2019-01-25 15:00 | NUR ---
GPS/RN-NOTES PATIENT STRONGLY REFUSED BLADDER SCAN,STATED " NO THEY DID CATHETER YESTERDAY". EXPLAINED RISK AND BENEFITS BUT PATIENT SCREAM AND YELLS AT THE AUTO BODY WORKER. CHARGE NURSE AWARE.
[2019-01-25 16:00] VITALS: BP 126/74
--- NOTE | 2019-01-25 16:10 | NUR ---
BALJEET called the pt's conservator, Amairani ([phone]), and left a message on her voicemail stating that the pt will be discharged back to [facility] [place] the following day.
[2019-01-25 20:48] VITALS: BP 96/59
[2019-01-25] MEDS: TAMSULOSIN 0.4 MG CAP.SR.24H PO SCH (21:35)
[2019-01-25] MEDS: OLANZAPINE 10 MG TABLET PO SCH (21:35)
[2019-01-26 07:31] LABS: BASOPHILS % (AUTO) 0.6 % (0.0-2.0); EOSINOPHILS % (AUTO) 4.9 % (0.0-6.0); HEMATOCRIT 37 % (33-45); HEMOGLOBIN 11.8 g/dL (11.5-14.8); LYMPHOCYTES # (AUTO) 1.9 /CMM (0.8-4.8); LYMPHOCYTES % (AUTO) 27.6 % (20.0-44.0); MEAN CORPUSCULAR HGB CONC 32 g/dl (31.0-36.0); MEAN CORPUSCULAR VOLUME 77 fL (82-100); MONOCYTES # (AUTO) 0.7 /CMM (0.1-1.30); MONOCYTES % (AUTO) 10.1 % (2.0-12.0); NEUTROPHILS # (AUTO) 3.8 /CMM (1.8-8.9); NEUTROPHILS % (AUTO) 56.8 % (43.0-81.0); PLATELET COUNT (AUTO) 111 /CMM (150-450); RED BLOOD CELL COUNT(AUTO) 4.72 MIL/uL (4.0-5.2); WHITE BLOOD COUNT (AUTO) 6.7 K/uL (4.3-11.0)
[2019-01-26 07:48] LABS: ALANINE AMINOTRANSFERASE 13 U/L (12-78); ALBUMIN 2.6 g/dL (3.4-5.0); ALKALINE PHOSPHATASE 71 U/L (46-116); ASPARTATE AMINOTRANSFERASE 17 U/L (15-37); BILIRUBIN,TOTAL 0.6 mg/dL (0.2-1.0); CALCIUM, SERUM 9.3 mg/dL (8.5-10.1); CARBON DIOXIDE 27 mmol/L (21-32); CHLORIDE 104 mmol/L (98-107); CREATININE 0.8 mg/dL (0.6-1.3); GLUCOSE 99 mg/dL (74-106); MAGNESIUM 1.7 mg/dL (1.8-2.4); PHOSPHORUS 3.5 mg/dL (2.5-4.9); POTASSIUM 3.9 mmol/L (3.5-5.1); SODIUM SERUM 138 mmol/L (136-145); TOTAL PROTEIN, SERUM 6.9 g/dL (6.4-8.2); UREA NITROGEN, BLOOD 8 mg/dL (7-18)
[2019-01-26 08:00] VITALS: BP 112/63
[2019-01-26] MEDS: LEVOTHYROXINE SODIUM 25 MCG TABLET PO SCH (08:41)
[2019-01-26] MEDS: DOCUSATE SODIUM 100 MG CAPSULE PO SCH (08:41)
[2019-01-26] MEDS: OLANZAPINE 5 MG TABLET PO SCH (08:41)
[2019-01-26] MEDS: FUROSEMIDE 20 MG TABLET PO SCH (08:42)
[2019-01-26] MEDS: CHOLECALCIFEROL 1,000 UNIT TABLET (VIT D3) PO SCH (08:42)
[2019-01-26] MEDS: LITHIUM CARBONATE (300 MG CAP) 300 MG CAPSULE PO SCH (08:42)
[2019-01-26] MEDS: POTASSIUM CHLORIDE 10 MEQ TABLET.SA PO SCH (08:48)
[2019-01-26] MEDS: CLOTRIMAZOLE 1% 15 GM TUBE TP SCH (08:49)
[2019-01-26] MEDS: Z GUARD REMEDY 4 OZ OINT TP SCH (08:49)
--- NOTE | 2019-01-26 11:20 | NUR ---
GPS/RN-NOTES PATIENT DISCHARGE TO [facility] TODAY. DR. PENA AND DR. SCHAFER AWARE WITH ORDERS .REPORT WAS GIVEN TO MAICO ( FACILITY SHORE WORKER). PATIENT DID NOT VERBALIZE SI/HI ,DENIES VISUAL/AUDITORY HALLUCINATIONS AT THE TIME OF DISCHARGE. PICKUP BY AMBULANCE [facility] WITH TWO STAFF ASSIST. PATIENT LEFT WITH ALL BELONGINGS. MI. BALJEET NOTES PATIENT CONSERVATOR SHEREE AWARE OF THE DISCHARGE.
--- NOTE | 2019-01-26 11:21 | NUR ---
BALJEET called the pt's conservator, Amairani ([phone]), and informed her on her voicemail that the pt was discharged back to [facility] [place] at 11:20AM.
--- NOTE | 2019-01-26 11:27 | NUR ---
Discharge Note: Pt was discharged to [facility] (SNF) located at [address] [place] [address], . Pt was transported via [facility] (Trip #[id number]) at 11AM. Pts conservator, Amairani ([phone]), was notified of this discharge. Upon discharge, the pt appeared to be in a euthymic mood and presented with a calm affect. The pt denied both suicidal and homicidal ideation as well as auditory and visual hallucinations. Pt will continue to be under the care of her psychiatrist, Dr. Izaguirre, located at [address], [place] [address]; and her fashion buyer, Dr. Miller, located at [address] [place] [address]; .
[2019-01-26] MEDS ORDERED: MAGNESIUM OXIDE 400 MG TABLET PO ONE (11:30)
== END 2019-01-26 11:20 | DRG 885 ==
LOC: ER 16:07 → GPS 19:55
PROVIDERS: ADMIT Psychiatry & Neurology Psychiatry; ATTEND Psychiatry & Neurology Psychiatry
DX: F20.0 Paranoid schizophrenia (principal); G93.40 Encephalopathy, unspecified; F03.90 Unspecified dementia, unspecified severity, without behavioral disturbance, psychotic disturbance, mood disturbance, and anxiety; E03.9 Hypothyroidism, unspecified; I10 Essential (primary) hypertension; E66.9 Obesity, unspecified; B35.1 Tinea unguium; F39 Unspecified mood [affective] disorder; L98.8 Other specified disorders of the skin and subcutaneous tissue; Z68.37 Body mass index [BMI] 37.0-37.9, adult
CPT/HCPCS: 36415; 80048-TC; 80053-TC; 80061-TC; 80076-TC; 80305; 81000-TC; 82565-TC; 83735-TC; 84100-TC; 84443-TC; 85025-TC; 87081-TC; 87086-TC; 87186-TC; 92521; G0480; J2680; J3490